=== PATIENT | female | born 1960 | race Caucasian/White ===

== ENCOUNTER 2020-01-06 07:43 | Emergency (ER) | payer SELFPAY ==
--- NOTE | 2020-01-06 07:55 | ED Physician Documentation ---
PD HPI ABD PAIN - Stated complaint Stated Complaint: CHEST PX AND BLOOD IN STOOL - History obtained from History obtained from: Patient - History of Present Illness Timing - onset: How many weeks ago (1-2 weeks of cramping abd pains, with soft stool at times, and noted dark color at times. Also noted some red blood in stool yesterday. She says she has seen a worm in her stool last week and thought it would be done. Saw "worm pieces" in toilet bowl since. She says she had a linear area of swelling on her eye surface last week, that she thought was a worm. Also having some heart palpitations at times with some chest tightness, so concerned about having heart infolvement of the worms. Went to PCP couple days ago, and given collection kit for stool sample, to bring back for lab testing. Had more cramps and some red blood with stool so came to ER for eval. Brought the stool sample in collewction kit from lab.) Timing - duration: Weeks Timing - details: Gradual onset, Waxing and waning Quality: Cramping, Aching, Pain Location: Other (lower to mid abd) Radiation: No: Lower back Improved by: BM Worsened by: Eating, Palpation. No: Moving, Breathing Associated symptoms: Nausea, Melena, Hematochezia. No: Fever, Vomiting, Diarrhea (but is loose at times), Loss of appetite Similar symptoms before: Has not had sx before, Other (she is concerned her husbands new girlfriend infected her with the worms by secretly putting it into her food.) Review of Systems Constitutional: denies: Fever, Chills Eyes: reports: Irritation (felt a lump on eye last week, and thought it might be a worm.). denies: Loss of vision, Decreased vision Nose: denies: Rhinorrhea / runny nose, Congestion Throat: denies: Sore throat Respiratory: denies: Cough GI: reports: Abdominal Pain, Diarrhea, Bloody / black stool. denies: Abdominal Swelling, Vomiting, Constipation : denies: Dysuria, Frequency Skin: denies: Rash, Lesions PD PAST MEDICAL HISTORY - Past Medical History Cardiovascular: None Respiratory: None Neuro: None Endocrine/Autoimmune: None GI: None ORTHODONTIC ASSISTANT: None : None - Present Medications Home Medications: Ambulatory Orders Medication Instructions Recorded Confirmed Albendazole 200 mg PO BID #14 tablet 01/06/20 Calcium Carbonate/Vitamin D3 1 each PO 01/06/20 [Calcium 250-D Tablet] Dicyclomine HCl 10 mg PO Q6H PRN #15 capsule 01/06/20 Zinc Gluconate [Zinc] 30 mg PO 01/06/20 - Allergies Allergies/Adverse Reactions: Allergies Allergy/AdvReac Type Severity Reaction Status Date / Time No Known Drug Allergies Allergy Verified 01/06/20 07:55 - Living Situation Living Situation: reports: Alone Living Arrangement: reports: At home (has a garden and house pets) - Social History Does the pt smoke?: No Does the pt have substance abuse?: No PD ED PE NORMAL - Vitals Vital signs reviewed: Yes - General General: Alert and oriented X 3, No acute distress (seems anxious), Well developed/nourished - HEENT HEENT: PERRL, EOMI, Pharynx benign, Other (normal surface of eye) - Neck Neck: Supple, no meningeal sign, No adenopathy - Cardiac Cardiac: RRR, No murmur - Respiratory Respiratory: Clear bilaterally - Abdomen Abdomen: Normal bowel sounds, Soft, Non tender, Non distended, No organomegaly - Rectal Rectal: Deferred - Derm Derm: Normal color, Warm and dry - Extremities Extremities: Normal ROM s pain, No edema, No calf tenderness / cord - Neuro Neuro: Alert and oriented X 3, No motor deficit, Normal speech Eye Opening: Spontaneous Motor: Obeys Commands Verbal: Oriented GCS Score: 15 - Psych Psych: Normal mood Results - Vitals Vitals: Vital Signs - 24 hr 01/06/20 01/06/20 01/06/20 07:51 09:02 11:25 Temperature 37.3 C Heart Rate 104 H 78 73 Respiratory 18 15 9 L Rate Blood Pressure 163/105 H 131/94 H O2 Saturation 99 97 97 Oxygen O2 Source Room air - Labs Labs: Laboratory Tests 01/06/20 01/06/20 01/06/20 08:47 08:47 08:47 WBC 7.6 RBC 4.12 L Hgb 13.8 Hct 40.3 MCV 97.8 MCH 33.5 H MCHC 34.2 RDW 13.4 Plt Count 346 MPV 9.7 Neut # (Auto) 5.1 Lymph # (Auto) 1.4 L Lyman # (Auto) 0.7 Eos # (Auto) 0.3 Baso # (Auto) 0.1 Absolute Nucleated RBC 0.00 Nucleated RBC % 0.0 Sodium 138 Potassium 3.9 Chloride 104 Carbon Dioxide 27 Anion Gap 7.0 BUN 17 Creatinine 0.4 Estimated GFR (MDRD) 163 Glucose 116 H Calcium 8.9 Magnesium 2.1 Iron 64 TIBC 302 % Saturation 21 Transferrin 216 Total Bilirubin 0.6 AST 21 ALT 27 Alkaline Phosphatase 53 Troponin I High Sens 6.5 Total Protein 7.1 Albumin 4.6 Globulin 2.5 Albumin/Globulin Ratio 1.8 Lipase 35 TSH 01/06/20 08:47 WBC RBC Hgb Hct MCV MCH MCHC RDW Plt Count MPV Neut # (Auto) Lymph # (Auto) Lyman # (Auto) Eos # (Auto) Baso # (Auto) Absolute Nucleated RBC Nucleated RBC % Sodium Potassium Chloride Carbon Dioxide Anion Gap BUN Creatinine Estimated GFR (MDRD) Glucose Calcium Magnesium Iron TIBC % Saturation Transferrin Total Bilirubin AST ALT Alkaline Phosphatase Troponin I High Sens Total Protein Albumin Globulin Albumin/Globulin Ratio Lipase TSH 0.71 PD MEDICAL DECISION MAKING - ED course Complexity details: considered differential (main symptoms of some dark stool, then blood in stool, cramps and seeing some worms in her stools could be consistent with hookworms/tapeworms. She says she feels fluttering/palpitations at times and is concerned about heart involvement. That would be unusual with types of worms common for people here. Dog "heart worms" uncommon in people. She brought stool sample to ER, so can send for O&P. Treat Albendazole empirically for now (400 mg once, with refill at 2 weeks if still symptoms, after talking with Pharmacy when she went to fill it).), d/w patient Departure - Departure Disposition: 01 Home, Self Care Clinical Impression: Intestinal cramps, Intestinal worms Condition: Stable Follow-Up: NAYELI MASON ARNP [Primary Care Provider] - Prescriptions: Albendazole 200 mg PO BID #14 tablet Dicyclomine HCl 10 mg PO Q6H PRN #15 capsule PRN Reason: Abdominal Pain Comments: The stool studies will take a day or 2 for the results. Meanwhile we can treat as likely intestinal worms based on your description. We did use albendazole twice daily for a week. You can use Tylenol if needed for pains or cramps. Dicyclomine can be used for intestinal cramps as well. Your blood count is good so no signs of anemia and your electrolytes and kidney function are good as well. Liver enzymes are good so no signs of liver inflammation. Follow-up with your primary care regarding your symptoms. Follow-up next week. Discharge Date/Time: 01/06/20 11:52
[2020-01-06] MEDS: FAMOTIDINE 20 MG TABLET PO STA (08:40)
[2020-01-06] MEDS: MAG HYDROX/AL HYDROX/SIMETH 30 ML UDC PO STA (08:49)
[2020-01-06 08:55] LABS: BASOPHILS # (AUTO) 0.1 10^3/uL (0.0-0.1); BASOPHILS % (AUTO) 0.8 %; EOSINOPHILS # (AUTO) 0.3 10^3/uL (0.0-0.7); EOSINOPHILS % (AUTO) 3.3 %; HGB - HEMOGLOBIN 13.8 g/dL (12.0-16.0); LYMPHOCYTES # (AUTO) 1.4 10^3/uL (1.5-3.5); LYMPHOCYTES % (AUTO) 18.4 %; MEAN CORPUSCULAR HEMOGLOBIN 33.5 pg (27.0-31.0); MEAN CORPUSCULAR HGB CONC 34.2 g/dL (32.0-36.0); MEAN CORPUSCULAR VOLUME 97.8 fL (81.0-99.0); MEAN PLATELET VOLUME 9.7 fL (7.9-10.8); MONOCYTES # (AUTO) 0.7 10^3/uL (0.0-1.0); MONOCYTES % (AUTO) 9.6 %; NEUTROPHILS # (AUTO) 5.1 10^3/uL (1.5-6.6); NEUTROPHILS % (AUTO) 67.6 %; PLT - PLATELET COUNT 346 10^3/uL (130-450); RED BLOOD COUNT 4.12 10^6/uL (4.20-5.40); RED CELL DISTRIBUTION WIDTH 13.4 % (12.0-15.0); WHITE BLOOD COUNT 7.6 x10^3/uL (4.8-10.8)
[2020-01-06 09:21] LABS: ALBUMIN 4.6 g/dL (3.2-5.5); ALBUMIN/GLOBULIN RATIO 1.8 (1.0-2.2); BILIRUBIN,TOTAL 0.6 mg/dL (0.2-1.0); CALCIUM 8.9 mg/dL (8.5-10.3); CREATININE 0.4 mg/dL (0.4-1.0); MAGNESIUM 2.1 mg/dL (1.7-2.8); TOTAL PROTEIN 7.1 g/dL (6.7-8.2)
[2020-01-06 11:26] VITALS: BP 131/94
== END 2020-01-06 11:52 | disposition home or self-care (01) ==
LOC: ED 07:43
DX: B82.0 Intestinal helminthiasis, unspecified (principal); R10.9 Unspecified abdominal pain
CPT/HCPCS: 36415; 83540; 83690; 83735; 84466; 84484; 87015; 87177; 87209; 87272; 87329; 93005; 99283; 99284; A9270; 80053; 84443; 85025; 87045; 87046